=== PATIENT | male | born 1985 | race Hispanic/Latino ===

== ENCOUNTER 2019-06-23 12:12 | Emergency (ER) | payer BC, OTHER ==
[2019-06-23] MEDS ORDERED: IBUPROFEN 400 MG TABLET ONE (12:50)
== END 2019-06-23 13:36 | disposition home or self-care (01) ==
LOC: EDH 12:12
DX: S93.692A Other sprain of left foot, initial encounter (principal); Z88.0 Allergy status to penicillin; V59.40XA Driver of pick-up truck or van injured in collision with unspecified motor vehicles in traffic accident, initial encounter; Y93.89 Activity, other specified; Y92.89 Other specified places as the place of occurrence of the external cause; Y99.8 Other external cause status
CPT/HCPCS: 73610; 73630